=== PATIENT | female | born 1970 | race Native Hawaiian/Other Pacific Islander ===

== ENCOUNTER 2020-10-25 15:45 | Emergency (ER) | payer MEDICARE, MEDICAID ==
[~2020-10-25] VITALS: Ht 152 cm; Wt 129.0 kg
[2020-10-25] MEDS ORDERED: ACETAMINOPHEN 500 MG TAB (TYLENOL) PO STA (16:40)
[2020-10-25] MEDS ORDERED: LACTATED RINGERS 1,000 ML IV ONE (16:45)
[2020-10-25 16:46] LABS: BASOPHILS # (AUTO) 0.2 10^3/uL (0.0-0.1); BASOPHILS % (AUTO) 1 % (0-10); EOSINOPHILS # (AUTO) 0.8 10^3/uL (0.0-0.3); EOSINOPHILS % (AUTO) 4 % (0-10); HEMATOCRIT 37 % (35-52); HEMOGLOBIN 11.3 g/dL (11.5-16.0); LYMPHOCYTES % (AUTO) 31 % (12-44); MEAN CORPUSCULAR HEMOGLOBIN 23 pg (25-34); MEAN CORPUSCULAR HGB CONC 30 g/dL (32-36); MEAN CORPUSCULAR VOLUME 75 fL (80-99); MEAN PLATELET VOLUME 9.2 fL (9.0-12.2); MONOCYTES # (AUTO) 2.1 10^3/uL (0.0-1.0); MONOCYTES % (AUTO) 11 % (0-12); NEUTROPHILS % (AUTO) 52 % (42-75); PLATELET COUNT 310 10^3/uL (130-400); WHITE BLOOD COUNT 19.4 10^3/uL (4.3-11.0)
[2020-10-25 16:53] LABS: BILIRUBIN,URINE NEGATIVE (NEGATIVE); CLARITY,URINE CLEAR; COLOR,URINE YELLOW; GLUCOSE, URINE (UA) 3+ (NEGATIVE); KETONES,URINE TRACE (NEGATIVE); LEUKOCYTE ESTERASE ,URINE NEGATIVE (NEGATIVE); NITRITE,URINE NEGATIVE (NEGATIVE); PH,URINE 5.5 (5-9); PROTEIN,URINE NEGATIVE (NEGATIVE)
[2020-10-25 16:57] LABS: ALBUMIN 4.1 GM/DL (3.2-4.5); CHLORIDE 103 MMOL/L (98-107); POTASSIUM 3.3 MMOL/L (3.6-5.0); SODIUM 137 MMOL/L (135-145)
[2020-10-25 16:58] LABS: CALCIUM 9.5 MG/DL (8.5-10.1)
[2020-10-25 17:00] LABS: BACTERIA,URINE FEW /HPF; GLUCOSE 183 MG/DL (70-105); SQUAMOUS EPITHELIAL CELL,UR 25-50 /HPF; TOTAL PROTEIN 8.2 GM/DL (6.4-8.2); YEAST,URINE MODERATE /HPF
[2020-10-25] MEDS ORDERED: NS IV 1000 ML 1,000 ML IV STA ×2 (17:00→18:05)
[2020-10-25 17:01] LABS: BILIRUBIN,TOTAL 0.2 MG/DL (0.1-1.0); CARBON DIOXIDE 19 MMOL/L (21-32)
--- NOTE | 2020-10-25 17:01 | ED General ---
General Stated Complaint: LOWER PELVIC PAIN/SOA/COUGH/COVID EXPOSURE Source of Information: Patient Exam Limitations: No Limitations (ALYSE HARDY MD) History of Present Illness Date Seen by Provider: Oct 25, 2020 Time Seen by Provider: 16:10 Initial Comments Here with report of low abdominal pain on the left as well as cough and mild melissa rtness of air. Also has mild fever. Is concerned that she has urinary tract infection which she often gets secondary to her diabetes. Also had Covid exposure with multiple family members that she has been around over the last week that are now turning up positive for Covid. She is worried about Covid infection. Mild congestion with sinus pressure without throat pain. Taking i buprofen which helps some. Timing/Duration: 5-6 Days, Getting Worse Severity: Moderate Associated Systoms: Cough, Fever/Chills; No Nausea/Vomiting; Shortness of Air; No Weakness (ALYSE HARDY MD) Allergies and Home Medications Allergies Coded Allergies: No Known Drug Allergies (Unverified , 10/25/20) Patient Home Medication List Home Medication List Reviewed: Yes (ALYSE HARDY MD) Review of Systems Review of Systems Constitutional: see HPI, fever EENTM: see HPI Respiratory: see HPI Cardiovascular: No chest pain, No edema Gastrointestinal: abdominal pain (LLQ); No nausea, No vomiting Genitourinary: dysuria, frequency : No Musculoskeletal: no symptoms reported Skin: no symptoms reported (ALYSE HARDY MD) All Other Systems Reviewed Negative Unless Noted: Yes (ALYSE HARDY MD) Past Ibbvdxt-Mykcts-Tlrlau Hx Past Med/Social Hx: Reviewed Nursing Past Med/Soc Hx (ALYSE HARDY MD) Patient Social History Alcohol Use: Denies Use Smoking Status: Never a Smoker (ALYSE HARDY MD) Past Medical History Surgeries: Yes Tubal Ligation Hypertension Endocrine: Yes Diabetes, Non-Insulin dep (ALYSE HARDY MD) Family Medical History Reviewed Nursing Family Hx (ALYSE HARDY MD) No Pertinent Family Hx (ALYSE HARDY MD) Physical Exam Vital Signs Vital Signs - First Documented 10/25/20 16:10 Temp 37.3 Pulse 130 Resp 22 B/P (MAP) 141/107 (118) Pulse Ox 95 (AVINASH LAW APRN) Vital Signs Capillary Refill : (ALYSE HARDY MD) Height, Weight, BMI Height: '" Weight: lbs. oz. kg; BMI Method: General Appearance: No Apparent Distress, WD/WN, Obese HEENT: PERRL/EOMI, Pharynx Normal Neck: Non Tender, Supple Respiratory: Lungs Clear, Normal Breath Sounds Cardiovascular: No Murmur, Tachycardia Gastrointestinal: Soft; No Guarding; Tenderness (Left lower quadrant/suprapubic mild tenderness to palpation) Back: Normal Inspection, No CVA Tenderness, No Vertebral Tenderness Extremity: Normal Range of Motion, Non Tender Neurologic/Psychiatric: Alert, Oriented x3 Skin: Normal Color, Warm/Dry (ALYSE HARDY MD) Progress/Results/Core Measures Suspected Sepsis SIRS Temperature: Pulse: Respiratory Rate: Laboratory Tests 10/25/20 16:35: White Blood Count 19.4H Blood Pressure / Mean: Laboratory Tests 10/25/20 16:35: Creatinine 0.80, Platelet Count 310, Total Bilirubin 0.2 (ALYSE HARDY MD) Results/Orders Lab Results Laboratory Tests Test 10/25/20 16:30 10/25/20 16:35 Range/Units Coronavirus 2019 (TALIA) Negative Negative White Blood Count 19.4 H 4.3-11.0 10^3/uL Red Blood Count 4.95 3.80-5.11 10^6/uL Hemoglobin 11.3 L 11.5-16.0 g/dL Hematocrit 37 35-52 % Mean Corpuscular Volume 75 L 80-99 fL Mean Corpuscular Hemoglobin 23 L 25-34 pg Mean Corpuscular Hemoglobin Concent 30 L 32-36 g/dL Red Cell Distribution Width 18.3 H 10.0-14.5 % Platelet Count 310 130-400 10^3/uL Mean Platelet Volume 9.2 9.0-12.2 fL Immature Granulocyte % (Auto) 1 % Neutrophils (%) (Auto) 52 42-75 % Lymphocytes (%) (Auto) 31 12-44 % Monocytes (%) (Auto) 11 0-12 % Eosinophils (%) (Auto) 4 0-10 % Basophils (%) (Auto) 1 0-10 % Neutrophils # (Auto) 10.0 H 1.8-7.8 10^3/uL Lymphocytes # (Auto) 6.0 H 1.0-4.0 10^3/uL Monocytes # (Auto) 2.1 H 0.0-1.0 10^3/uL Eosinophils # (Auto) 0.8 H 0.0-0.3 10^3/uL Basophils # (Auto) 0.2 H 0.0-0.1 10^3/uL Immature Granulocyte # (Auto) 0.2 H 0.0-0.1 10^3/uL Neutrophils % (Manual) 53 % Lymphocytes % (Manual) 31 % Monocytes % (Manual) 14 % Eosinophils % (Manual) 2 % Nucleated Red Blood Cells 1 Hypochromasia MODERATE Target Cells SLIGHT Miller Cells SLIGHT Acanthocytes SLIGHT Urine Color YELLOW Urine Clarity CLEAR Urine pH 5.5 5-9 Urine Specific Hoffmeister 1.020 1.016-1.022 Urine Protein NEGATIVE NEGATIVE Urine Glucose (UA) 3+ H NEGATIVE Urine Ketones TRACE H NEGATIVE Urine Nitrite NEGATIVE NEGATIVE Urine Bilirubin NEGATIVE NEGATIVE Urine Urobilinogen 0.2 < = 1.0 MG/DL Urine Leukocyte Esterase NEGATIVE NEGATIVE Urine RBC (Auto) NEGATIVE NEGATIVE Urine RBC NONE /HPF Urine WBC 5-10 H /HPF Urine Squamous Epithelial Cells 25-50 H /HPF Urine Crystals NONE /LPF Urine Bacteria FEW H /HPF Urine Casts NONE /LPF Urine Mucus NEGATIVE /LPF Urine Yeast MODERATE H /HPF Urine Culture Indicated YES Sodium Level 137 135-145 MMOL/L Potassium Level 3.3 L 3.6-5.0 MMOL/L Chloride Level 103 98-107 MMOL/L Carbon Dioxide Level 19 L 21-32 MMOL/L Anion Gap 15 H 5-14 MMOL/L Blood Urea Nitrogen 18 7-18 MG/DL Creatinine 0.80 0.60-1.30 MG/DL Estimat Glomerular Filtration Rate > 60 BUN/Creatinine Ratio 23 Glucose Level 183 H 70-105 MG/DL Calcium Level 9.5 8.5-10.1 MG/DL Corrected Calcium 9.4 8.5-10.1 MG/DL Total Bilirubin 0.2 0.1-1.0 MG/DL Aspartate Amino Transf (AST/SGOT) 28 5-34 U/L Alanine Aminotransferase (ALT/SGPT) 52 0-55 U/L Alkaline Phosphatase 45 40-136 U/L C-Reactive Protein High Sensitivity 0.14 0.00-0.50 MG/DL Total Protein 8.2 6.4-8.2 GM/DL Albumin 4.1 3.2-4.5 GM/DL (AVINASH LAW APRN) Micro Results Microbiology 10/25/20 Influenza Types A,B Antigen (TANISHA) - Final, Complete (AVINASH LAW APRN) My Orders Orders - AVINASH LAW APRN Fluconazole Tablet (Ed Only) (Diflucan T (10/25/20 17:45) Lactated Ringers (Lr 1000 Ml Iv Solution (10/25/20 18:00) (AVINASH LAW APRN) Medications Given in ED Current Medications Medications Dose Ordered Sig/Rika Route Start Time Stop Time Status Last Admin Dose Admin Fluconazole 150 mg ONCE ONCE PO 10/25/20 17:45 10/25/20 17:46 DC 10/25/20 18:59 150 MG Iohexol 100 ml ONCE ONCE IV 10/25/20 17:45 10/25/20 17:46 DC 10/25/20 18:33 100 ML Sodium Chloride 100 ml ONCE ONCE IV 10/25/20 17:45 10/25/20 17:46 DC 10/25/20 18:33 80 ML (AVINASH LAW APRN) Vital Signs/I&O 10/25/20 16:10 Temp 37.3 Pulse 130 Resp 22 B/P (MAP) 141/107 (118) Pulse Ox 95 (AVINASH LAW APRN) Vital Signs/I&O Capillary Refill : (ALYSE HARDY MD) Progress Note : Progress Note Seen and evaluated. IV, labs, UA, Covid rapid test and influenza rapid test ordered. NS 1 L bolus and Tylenol 1 g p.o. ordered. Monitor patient. 1734: CT abdomen pelvis ordered is Covid and influenza screen negative. UA is nonconcerning except for yeast infection. White count is quite elevated at greater than 19,000. This was discussed with the patient who agrees. Monitor patient. (ALYSE HARDY MD) Departure Impression Primary Impression: Pelvic pain Additional Impressions: Person under investigation for COVID-19 Yeast infection of the vagina Disposition: HOME, SELF-CARE Condition: Stable Departure-Patient Inst. Decision time for Depature: 19:17 (AVINASH LAW APRN) Patient Instructions: Vaginal Yeast Infection (DC) Add. Discharge Instructions: 1. Return to ER for any concerns 2. Follow-up with your doctor next week. Scripts Fluconazole (Diflucan) 150 Mg Tablet 150 MG PO DAILY, #2 TAB Prov: AVINASH LAW APRN 10/25/20 ALYSE HARDY MD Oct 25, 2020 17:01 AVINASH LAW APRN Oct 25, 2020 19:19
[2020-10-25 17:03] LABS: ALKALINE PHOSPHATASE 45 U/L (40-136); GFR ESTIMATED > 60
[2020-10-25 17:04] LABS: BUN/CREATININE RATIO 23
[2020-10-25 17:06] LABS: ALANINE AMINOTRANSFERASE 52 U/L (0-55)
[2020-10-25] MEDS ORDERED: NS IV 1000 ML 1,000 ML IV SCH (17:15)
[2020-10-25 17:30] LABS: ACANTHOCYTES SLIGHT; BURR CELLS SLIGHT; EOSINOPHILS % (MANUAL) 2 %; HYPOCHROMASIA MODERATE; LYMPHOCYTES % (MANUAL) 31 %; MONOCYTES % (MANUAL) 14 %; NEUTROPHILS % (MANUAL) 53 %; NUCLEATED RED BLOOD CELLS 1; TARGET CELLS SLIGHT
[2020-10-25] MEDS ORDERED: HOLD METFORMIN - RECEIVED CONTRAST 20 ML VIAL IV SCH (17:45)
[2020-10-25] MEDS ORDERED: IOHEXOL 350 MG/ML 100 ML (OMNIPAQUE 350) VIAL IV ONE (17:45)
[2020-10-25] MEDS ORDERED: NS 100 ML (IVPB) BAG IV ONE (17:45)
[2020-10-25] MEDS ORDERED: FLUCONAZOLE 150 MG TABLET (ED ONLY) PO ONE (17:45)
[2020-10-25] MEDS ORDERED: LACTATED RINGERS 1,000 ML IV SCH (18:00)
--- NOTE | 2020-10-25 19:01 | Diagnostic Imaging Report ---
PROCEDURE: CT abdomen and pelvis with contrast. TECHNIQUE: Multiple contiguous axial images were obtained through the abdomen and pelvis after administration of intravenous contrast. Auto Exposure Controls were utilized during the CT exam to meet ALARA standards for radiation dose reduction. All CT scans use one or more of the following dose optimizing techniques: automated exposure control, MA and/or KvP adjustment based on patient size and exam type or iterative reconstruction. INDICATION: Lower abdominal pain. Recent exposure to COVID. Body aches. CORRELATION STUDY: None. FINDINGS: LOWER THORAX: Clear. LIVER: Mild steatosis. GALLBLADDER: Present and unremarkable. No bile duct dilatation. SPLEEN: Absent. PANCREAS: Unremarkable. ADRENAL GLANDS: Unremarkable. KIDNEYS: 19 mm exophytic mass inferior pole right kidney. Incompletely characterized. Kidneys and collecting system otherwise unremarkable. ABDOMINAL AORTA: Unremarkable, nonaneurysmal. GASTROINTESTINAL TRACT: Stomach is distended with retained gastric contents. No small bowel obstruction. Moderate stool retention throughout the colon. Negative for appendicitis. No abnormal ascites or free air. URINARY BLADDER: Unremarkable. REPRODUCTIVE: Unremarkable. OSSEOUS STRUCTURES: No acute abnormality. OTHER: None. IMPRESSION: 1. Negative for acute abnormality of the abdomen or pelvis. 2. Exophytic mass inferior pole right kidney. May very well reflect a cyst but is incompletely characterized on this study. Questionable peripheral enhancement. Short-term follow-up assessment is recommended, perhaps to include renal ultrasound. Dictated by: Dictated on workstation # [id number]
[2020-10-25] MEDS ORDERED: FLUC150T PO (19:19)
[2020-10-25 19:48] VITALS: BP 137/90
== END 2020-10-25 19:58 | disposition home or self-care (01) ==
LOC: ER 15:48
DX: B37.3 Candidiasis of vulva and vagina (principal); R05 Cough; R06.02 Shortness of breath; R50.9 Fever, unspecified; J34.89 Other specified disorders of nose and nasal sinuses; I10 Essential (primary) hypertension; E11.9 Type 2 diabetes mellitus without complications; E66.9 Obesity, unspecified; Z20.822 Contact with and (suspected) exposure to COVID-19
CPT/HCPCS: 74177; 80053; 81000; 85007; 85027; 86141; 87088; 87804; 99284; U0002; 36415; 87635

== ENCOUNTER 2021-08-22 20:52 | Observation (INO) | payer MEDICAID, MEDICARE ==
[~2021-08-22] VITALS: Ht 157 cm; Wt 111.7 kg
[~2021-08-22 20:52] MED LIST: FLUC150T PO
[2021-08-22] MEDS ORDERED: morphine INJ 10 MG/ML 1ML (SYR OR VIAL) IV STA (21:09)
[2021-08-22 21:15] LABS: BASOPHILS # (AUTO) 0.3 10^3/uL (0.0-0.1); BASOPHILS % (AUTO) 2 % (0-10); EOSINOPHILS # (AUTO) 0.8 10^3/uL (0.0-0.3); EOSINOPHILS % (AUTO) 5 % (0-10); HEMATOCRIT 39 % (35-52); HEMOGLOBIN 11.7 g/dL (11.5-16.0); LYMPHOCYTES # (AUTO) 4.8 10^3/uL (1.0-4.0); LYMPHOCYTES % (AUTO) 32 % (12-44); MEAN CORPUSCULAR HEMOGLOBIN 22 pg (25-34); MEAN CORPUSCULAR HGB CONC 30 g/dL (32-36); MEAN CORPUSCULAR VOLUME 73 fL (80-99); MEAN PLATELET VOLUME 9.6 fL (9.0-12.2); MONOCYTES # (AUTO) 1.9 10^3/uL (0.0-1.0); MONOCYTES % (AUTO) 13 % (0-12); NEUTROPHILS # (AUTO) 6.9 10^3/uL (1.8-7.8); NEUTROPHILS % (AUTO) 46 % (42-75); PLATELET COUNT 140 10^3/uL (130-400); WHITE BLOOD COUNT 14.9 10^3/uL (4.3-11.0)
[2021-08-22] MEDS ORDERED: ASPIRIN 81 MG CHEW (CHILDREN'S ASA) PO ONE (21:15)
[2021-08-22 21:18] LABS: ALBUMIN 3.8 GM/DL (3.2-4.5); POTASSIUM 3.1 MMOL/L (3.6-5.0)
--- NOTE | 2021-08-22 21:19 | ED Cardiac General ---
History of Present Illness General Chief Complaint: Chest Pain Stated Complaint: CHEST PAIN Source: patient Exam Limitations: no limitations History of Present Illness Date Seen by Provider: Aug 22, 2021 Time Seen by Provider: 21:17 Initial Comments Patient is a 51-year-old female who presents to ED with chest pain. Started with numbness and tingling along the anterior part of her chest to her extremities 4 hours ago. Started developing pain to the left side of the chest underneath her left breast and axilla 1 hour ago. Described as a squeezing sensation and pressure. Mild shortness of breath without nausea, vomiting, diarrhea, abdominal pain, headache, dizziness, unilateral muscle weakness or se nsory changes. Denies history of coronary artery disease. History of asthma, hypertension, diabetes, dyslipidemia, family cardiac history. No history of previous cardiac event. Patient is scheduled to follow-up with neurologist secondary to focal seizures. She states she has intermittent episodes where she jerks and throws objects unwillingly. Allergies and Home Medications Allergies Coded Allergies: No Known Drug Allergies (Unverified , 10/25/20) Patient Home Medication List Home Medication List Reviewed: Yes Fluconazole (Diflucan) 150 Mg Tablet, 150 MG PO DAILY Prescribed by: AVINASH LAW on 10/25/201918 Review of Systems Review of Systems Constitutional: No chills, No diaphoresis, No fever EENTM: No Blurred Vision, No Double Vision, No Eye Pain Respiratory: Denies Cough, Denies Shortness of Air, Denies SOA With Exertion Cardiovascular: Chest Pain; Denies Edema Gastrointestinal: Denies Abdomen Distended, Denies Abdominal Pain Genitourinary: Denies Burning, Denies Discharge Musculoskeletal: No see HPI, No back pain, No gout, No joint pain Skin: No see HPI, No change in color, No change in hair/nails Psychiatric/Neurological: Denies Anxiety, Denies Depressed Endocrine: Denies See HPI Hematologic/Lymphatic: Denies See HPI Past Lokaayl-Arqnsz-Efobew Hx Seasonal Allergies Seasonal Allergies: Yes Past Medical History Surgeries: Yes Tubal Ligation Respiratory: Yes Asthma, Sleep Apnea Cardiac: Yes Hypertension Neurological: No Genitourinary: Yes UTI-Chronic Gastrointestinal: Yes (CELIAC DISEASE) Endocrine: Yes Diabetes, Non-Insulin dep HEENT: No Cancer: No Psychosocial: No Integumentary: No Family Medical History No Pertinent Family Hx Physical Exam Vital Signs Vital Signs - First Documented 08/22/21 20:55 Temp 36.4 Pulse 93 Resp 24 B/P (MAP) 158/87 (110) Pulse Ox 97 O2 Delivery Room Air Capillary Refill : Height, Weight, BMI Height: '" Weight: lbs. oz. kg; 55.00 BMI Method: General Appearance: No Apparent Distress, WD/WN HEENT: PERRL/EOMI, TMs Normal, Normal ENT Inspection, Pharynx Normal Neck: Full Range of Motion, Normal Inspection, Non Tender, Supple Respiratory: Chest Non Tender, Lungs Clear, Normal Breath Sounds Cardiovascular: Regular Rate, Rhythm, No Edema, No Gallop, No JVD Gastrointestinal: Normal Bowel Sounds, No Organomegaly, No Pulsatile Mass, Non Tender Extremity: Normal Capillary Refill, Normal Inspection, Normal Range of Motion, Non Tender Skin: Normal Color, Warm/Dry Progress/Results/Core Measures Results/Orders Lab Results Laboratory Tests Test 08/22/21 21:05 Range/Units White Blood Count 14.9 H 4.3-11.0 10^3/uL Red Blood Count 5.29 H 3.80-5.11 10^6/uL Hemoglobin 11.7 11.5-16.0 g/dL Hematocrit 39 35-52 % Mean Corpuscular Volume 73 L 80-99 fL Mean Corpuscular Hemoglobin 22 L 25-34 pg Mean Corpuscular Hemoglobin Concent 30 L 32-36 g/dL Red Cell Distribution Width 18.6 H 10.0-14.5 % Platelet Count 140 130-400 10^3/uL Mean Platelet Volume 9.6 9.0-12.2 fL Immature Granulocyte % (Auto) 2 % Neutrophils (%) (Auto) 46 42-75 % Lymphocytes (%) (Auto) 32 12-44 % Monocytes (%) (Auto) 13 H 0-12 % Eosinophils (%) (Auto) 5 0-10 % Basophils (%) (Auto) 2 0-10 % Neutrophils # (Auto) 6.9 1.8-7.8 10^3/uL Lymphocytes # (Auto) 4.8 H 1.0-4.0 10^3/uL Monocytes # (Auto) 1.9 H 0.0-1.0 10^3/uL Eosinophils # (Auto) 0.8 H 0.0-0.3 10^3/uL Basophils # (Auto) 0.3 H 0.0-0.1 10^3/uL Immature Granulocyte # (Auto) 0.3 H 0.0-0.1 10^3/uL Neutrophils % (Manual) 55 % Lymphocytes % (Manual) 28 % Monocytes % (Manual) 10 % Eosinophils % (Manual) 5 % Basophils % (Manual) 2 % Blood Morphology Comment NORMAL Prothrombin Time 13.1 12.2-14.7 SEC INR Comment 1.0 0.8-1.4 Activated Partial Thromboplast Time 25 24-35 SEC Sodium Level 136 135-145 MMOL/L Potassium Level 3.1 L 3.6-5.0 MMOL/L Chloride Level 102 98-107 MMOL/L Carbon Dioxide Level 21 21-32 MMOL/L Anion Gap 13 5-14 MMOL/L Blood Urea Nitrogen 17 7-18 MG/DL Creatinine 0.93 0.60-1.30 MG/DL Estimat Glomerular Filtration Rate 64 BUN/Creatinine Ratio 18 Glucose Level 215 H 70-105 MG/DL Calcium Level 8.8 8.5-10.1 MG/DL Corrected Calcium 9.0 8.5-10.1 MG/DL Magnesium Level 1.9 1.6-2.4 MG/DL Total Bilirubin 0.3 0.1-1.0 MG/DL Aspartate Amino Transf (AST/SGOT) 54 H 5-34 U/L Alanine Aminotransferase (ALT/SGPT) 90 H 0-55 U/L Alkaline Phosphatase 70 40-136 U/L Troponin I < 0.028 <0.028 NG/ML Total Protein 8.0 6.4-8.2 GM/DL Albumin 3.8 3.2-4.5 GM/DL My Orders Orders - JUANCHO METZ PA Cbc With Automated Diff (08/22/21 21:09) Magnesium (08/22/21 21:09) Chest 1 View, Ap/Pa Only (08/22/21 21:09) Ekg Tracing (08/22/21 21:) Comprehensive Metabolic Panel (08/22/21 21:09) Protime With Inr (08/22/21 21:) Partial Thromboplastin Time (08/22/21 21:) Monitor-Rhythm Ecg Trace Only (08/22/21 21:09) Ed Iv/Invasive Line Start (08/22/21 21:09) Troponin I (08/22/21 21:09) Aspirin Chewable Tablet (Baby Aspirin Ch (08/22/21 21:15) Morphine Injection (Morphine Injection (08/22/21 21:09) Manual Differential (08/22/21 21:05) Ua Culture If Indicated (08/22/21 21:40) Medications Given in ED Current Medications Medications Dose Ordered Sig/Rika Route Start Time Stop Time Status Last Admin Dose Admin Aspirin 324 mg ONCE ONCE PO 08/22/21 21:15 08/22/21 21:16 DC 08/22/21 21:16 324 MG Vital Signs/I&O 08/22/21 20:55 Temp 36.4 Pulse 93 Resp 24 B/P (MAP) 158/87 (110) Pulse Ox 97 O2 Delivery Room Air Departure Communication (Admissions) Time/Spoke to Admitting Phy: 22:10 Time/Spoke to Consulting Phy: 22:[address] Gabriel who accepts patient at this time. Consulted Dr. Pierre who recommends starting metoprolol succinate 50 mg and aspirin 81 mg daily. Patient presents ED with chest pain. Pain started 4 hours ago with numbness and tingling to her hands and jaw. This became worse with squeezing type pain to the left side of her chest with shortness of breath. Patient with cardiac risk factors. HEART Score 4. Family cardiac history. Patient vital signs were stable. No recent travels or surgeries. Denies of any specific swelling, redness or bruising. Patient was given a dose of aspirin and morphine. 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 Abnormal CBC with previous similar results in the past. Cardiac work-up unremarkable. Chest x-ray unremarkable. Urinalysis negative for infection. Recommend admission for cardiac work-up. Discussed patient with Dr. Oconnor who accepts patient. Discussed patient with Dr. Pierre who recommends metoprolol Succinate 50 mg extended release and aspirin 81 mg, as needed morphine. Patient agrees with admission at this time. Impression Primary Impression: Chest pain Disposition: ADMITTED INPATIENT Condition: Stable Admissions Decision to Admit Reason: Admit from ER (General) Decision to Admit/Date: Aug 22, 2021 Time/Decision to Admit Time: 22:11 Departure-Patient Inst. Referrals: SRINIVAS CUELLO APRN (PCP/Family) Primary Care Physician JUANCHO METZ Aug 22, 2021 21:19
[2021-08-22 21:20] LABS: CALCIUM 8.8 MG/DL (8.5-10.1); PROTHROMBIN TIME PATIENT 13.1 SEC (12.2-14.7)
[2021-08-22 21:23] LABS: BILIRUBIN,TOTAL 0.3 MG/DL (0.1-1.0)
[2021-08-22 21:24] LABS: CREATININE SERUM 0.93 MG/DL (0.60-1.30)
[2021-08-22 21:27] LABS: MAGNESIUM 1.9 MG/DL (1.6-2.4)
--- NOTE | 2021-08-22 21:43 | Diagnostic Imaging Report ---
EXAM: CHEST 1 VIEW, AP/PA ONLY INDICATION: Chest pain. COMPARISON: None. FINDINGS: Normal heart size and central pulmonary vascularity. No focal pulmonary opacity. No pleural effusion or pneumothorax. No acute osseous findings. IMPRESSION: No acute cardiopulmonary findings. Dictated by: Dictated on workstation # [id number]
[2021-08-22 21:52] LABS: LYMPHOCYTES % (MANUAL) 28 %; MONOCYTES % (MANUAL) 10 %; NEUTROPHILS % (MANUAL) 55 %
[2021-08-22 21:53] LABS: BASOPHILS % (MANUAL) 2 %; EOSINOPHILS % (MANUAL) 5 %; RBC MORPH NORMAL
[2021-08-22 22:21] LABS: BILIRUBIN,URINE NEGATIVE (NEGATIVE); CLARITY,URINE CLEAR; COLOR,URINE YELLOW; GLUCOSE, URINE (UA) 3+ (NEGATIVE); KETONES,URINE NEGATIVE (NEGATIVE); LEUKOCYTE ESTERASE ,URINE NEGATIVE (NEGATIVE); NITRITE,URINE NEGATIVE (NEGATIVE); PROTEIN,URINE NEGATIVE (NEGATIVE)
[2021-08-22] MEDS ORDERED: meTOproloL SUCCINATE 50 MG (TOPROL XL) TAB PO STA (22:27)
[2021-08-22 22:42] LABS: BACTERIA,URINE NEGATIVE /HPF; SQUAMOUS EPITHELIAL CELL,UR 0-2 /HPF
[2021-08-22 22:43] LABS: YEAST,URINE FEW /HPF
[2021-08-22 23:11] VITALS: BP 148/86
[2021-08-22 23:28] VITALS: BP 142/84
[2021-08-22 23:30] VITALS: BP 138/89
[2021-08-22 23:45] VITALS: BP 138/82
[2021-08-22] MEDS ORDERED: ONDANSETRON 4 MG/2 ML (SDV) Z0FRAN IVP PRN (23:45)
[2021-08-22] MEDS ORDERED: morphine INJ 4 MG/ML 1 ML (VIAL/SYRINGE) IVP PRN (23:45)
[2021-08-22] MEDS ORDERED: NITROGLYCERIN 0.4 MG SL TABS BTL 25'S SL PRN (23:45)
[2021-08-22] MEDS ORDERED: morphine INJ 4 MG/ML 1 ML (VIAL/SYRINGE) IV PRN (23:45)
[2021-08-23] VITALS (11 sets, daily range): BP systolic 116–155; BP diastolic 68–87
[2021-08-23] MEDS ORDERED: FLU QUADRIvalent (3YOA+) 60 mcg/0.5 ml 2021-22(AFLURIA) IM ONE (06:45)
[2021-08-23 07:18] LABS: BASOPHILS # (AUTO) 0.2 10^3/uL (0.0-0.1); BASOPHILS % (AUTO) 2 % (0-10); EOSINOPHILS % (AUTO) 7 % (0-10); HEMATOCRIT 39 % (35-52); HEMOGLOBIN 11.9 g/dL (11.5-16.0); LYMPHOCYTES # (AUTO) 4.6 10^3/uL (1.0-4.0); LYMPHOCYTES % (AUTO) 32 % (12-44); MEAN CORPUSCULAR HEMOGLOBIN 22 pg (25-34); MEAN CORPUSCULAR HGB CONC 30 g/dL (32-36); MEAN CORPUSCULAR VOLUME 74 fL (80-99); MEAN PLATELET VOLUME 10.6 fL (9.0-12.2); MONOCYTES % (AUTO) 14 % (0-12); NEUTROPHILS # (AUTO) 6.5 10^3/uL (1.8-7.8); NEUTROPHILS % (AUTO) 45 % (42-75); PLATELET COUNT 146 10^3/uL (130-400); WHITE BLOOD COUNT 14.6 10^3/uL (4.3-11.0)
[2021-08-23 07:28] LABS: ALBUMIN 3.8 GM/DL (3.2-4.5); BILIRUBIN,TOTAL 0.3 MG/DL (0.1-1.0); CALCIUM 9.1 MG/DL (8.5-10.1); CREATININE SERUM 0.82 MG/DL (0.60-1.30); TOTAL PROTEIN 8.3 GM/DL (6.4-8.2)
[2021-08-23] MEDS ORDERED: meTOproloL SUCCINATE 50 MG (TOPROL XL) TAB PO SCH (09:00)
[2021-08-23] MEDS ORDERED: ASPIRIN E.C. 81 MG (ECOTRIN) TAB PO SCH (09:00)
--- NOTE | 2021-08-23 09:32 | Consultation-Cardiology ---
HPI-Cardiology Cardiology Consultation: Date of Consultation 08/23/21 Time Seen by a Provider: 09:00 Date of Admission 08-22-21 Attending Physician Erica Gabriel DO Admitting Physician Nicol,Local Physician Consulting Physician Matias Pierre MD HPI: Chief Complaint: Chest pain Ms. Goodwin is a 51 yr old female admitted to [facility] from the ED with c/o chest pain. She reports she was lying down last night when she developed left sided chest pain in the the breast region. She reports it as a sharp stabbing pain that radiated around to under her arm and made her hands feel numb. She states she changed positions to try and relieve the discomfort. Movement did not make the pain any worse. She reports she felt some diaphoresis and nausea with the discomfort. She reports is persisted constantly for several hours. She reports she has a pulse ox at home and noted her HR to vary from 80's to 140's. She reports she did feel as though she was having palpitations at that time. She reports since being admitted she has had "tinges" of sharp, stabbing pains to her left breast which are localized lasting a few seconds. No c/o SOB. She states she uses CPAP at night and has been compliant. She denies any h/v/d. No c/o LE swelling. Review of Systems-Cardiology Review of Systems Constitutional: No chills, No fever; lightheadedness Eyes: No vision change Ears/Nose/Throat: No epistaxis, No recent hearing loss Respiratory: As described under HPI Cardiovascular: As described under HPI Gastrointestinal: As described under HPI Genitourinary: No dysuria, No hematuria Musculoskeletal: As describe under HPI Skin: No rash on exposed areas, No ulcerations on exposed areas Psychiatric/Neurological: anxiety, depression; No seizure (re), No focal weakn ess, No syncope Hematologic: No bleeding abnormalities PWP-Kakcyu-Xmloms Hx Patient Social History Smoking Status: Never a Smoker Have you traveled recently?: No Alcohol Use?: No Pt feels they are or have been: No Past Medical History PMH As described under Assessment. Family Medical History Family Medical History: She reports he mother has cardiac issues, but is unsure of exactly what the issues are. Allergies and Home Medications Allergies Coded Allergies: No Known Drug Allergies (Unverified , 10/25/20) Patient Home Medication List Fluconazole (Diflucan) 150 Mg Tablet, 150 MG PO DAILY Prescribed by: AVINASH LAW on 10/25/201918 Physical Exam-Cardiology Physical Exam Vital Signs/I&O 08/22/21 08/22/21 08/22/21 08/22/21 23:05 23:07 23:09 23:11 Temp 36.1 Pulse 90 92 96 Resp 18 16 B/P (MAP) 152/86 148/86 (106) Pulse Ox 98 98 98 O2 Delivery Room Air Room Air Room Air 08/22/21 08/22/21 08/22/21 08/23/21 23:28 23:30 23:45 00:00 Pulse 98 92 89 92 Resp 14 21 22 B/P (MAP) 142/84 (100) 138/89 (106) 138/82 (96) 155/87 (108) Pulse Ox 96 95 96 96 O2 Delivery Room Air Room Air Room Air Room Air 08/23/21 08/23/21 08/23/21 08/23/21 00:15 00:30 00:45 01:00 Pulse 87 88 89 90 Resp 19 25 19 21 B/P (MAP) 135/84 (93) 137/75 (95) 131/77 (94) 127/76 (91) Pulse Ox 95 96 96 96 O2 Delivery Room Air Room Air Room Air Room Air 08/23/21 08/23/21 08/23/21 08/23/21 01:00 02:00 03:00 03:57 Pulse 86 87 86 Resp 18 23 B/P (MAP) 141/85 (102) 137/86 (105) Pulse Ox 97 97 96 O2 Delivery Room Air Room Air Room Air 08/23/21 08/23/21 08/23/21 04:00 05:00 07:43 Temp 35.7 Pulse 87 82 82 Resp 17 20 21 B/P (MAP) 116/68 (84) 137/83 (101) 147/83 (104) Pulse Ox 98 93 97 O2 Delivery Room Air Room Air Room Air Capillary Refill : Less Than 3 Seconds Constitutional: AAO x 3, well-developed, well-nourished HEENT: PERRL, hearing is well preserved, oral hygience is good Neck: No carotid bruit; carotid pulses are 2 + bilaterally Respiratory: No accessory muscle use, No respiratory distress; chest expansion is symmetric, chest is bilaterally symmetric, lungs clear to auscultation Cardiovascular: regular rate-rhythm; No JVD; S1 and S2 Gastrointestinal: No tender; soft, round, audible bowel sounds Extremities: no lower extremity edema bilateral Neurologic/Psychiatric: grossly intact (moves all extremities) Skin: No rash on exposed areas, No ulcerations on exposed areas Data Review Labs Laboratory Tests 08/22/21 21:05: White Blood Count 14.9H, Red Blood Count 5.29H, Hemoglobin 11.7, Hematocrit 39, Mean Corpuscular Volume 73L, Mean Corpuscular Hemoglobin 22L, Mean Corpuscular Hemoglobin Concent 30L, Red Cell Distribution Width 18.6H, Platelet Count 140, Mean Platelet Volume 9.6, Immature Granulocyte % (Auto) 2, Neutrophils (%) (Auto) 46, Lymphocytes (%) (Auto) 32, Monocytes (%) (Auto) 13H, Eosinophils (%) (Auto) 5, Basophils (%) (Auto) 2, Neutrophils # (Auto) 6.9, Lymphocytes # (Auto) 4.8H, Monocytes # (Auto) 1.9H, Eosinophils # (Auto) 0.8H, Basophils # (Auto) 0.3H, Immature Granulocyte # (Auto) 0.3H, Neutrophils % (Manual) 55, Lymphocytes % (Manual) 28, Monocytes % (Manual) 10, Eosinophils % (Manual) 5, Basophils % (Manual) 2, Blood Morphology Comment NORMAL, Prothrombin Time 13.1, INR Comment 1.0, Activated Partial Thromboplast Time 25, Sodium Level 136, Potassium Level 3.1L, Chloride Level 102, Carbon Dioxide Level 21, Anion Gap 13, Blood Urea Nitrogen 17, Creatinine 0.93, Estimat Glomerular Filtration Rate 64, BUN/Creatinine Ratio 18, Glucose Level 215H, Calcium Level 8.8, Corrected Calcium 9.0, Magnesium Level 1.9, Total Bilirubin 0.3, Aspartate Amino Transf (AST/SGOT) 54H, Alanine Aminotransferase (ALT/SGPT) 90H, Alkaline Phosphatase 70, Troponin I < 0.028, Total Protein 8.0, Albumin 3.8 08/22/21 22:12: Urine Color YELLOW, Urine Clarity CLEAR, Urine pH 7.0, Urine Specific [place] 1.020, Urine Protein NEGATIVE, Urine Glucose (UA) 3+H, Urine Ketones NEGATIVE, Urine Nitrite NEGATIVE, Urine Bilirubin NEGATIVE, Urine Urobilinogen 0.2, Urine Leukocyte Esterase NEGATIVE, Urine RBC (Auto) NEGATIVE, Urine RBC NONE, Urine WBC NONE, Urine Squamous Epithelial Cells 0-2, Urine Crystals NONE, Urine Bacteria NEGATIVE, Urine Casts NONE, Urine Mucus NEGATIVE, Urine Yeast FEWH, Urine Culture Indicated YES 08/23/21 06:00: White Blood Count 14.6H, Red Blood Count 5.33H, Hemoglobin 11.9, Hematocrit 39, Mean Corpuscular Volume 74L, Mean Corpuscular Hemoglobin 22L, Mean Corpuscular Hemoglobin Concent 30L, Red Cell Distribution Width 18.6H, Platelet Count 146, Mean Platelet Volume 10.6, Immature Granulocyte % (Auto) 2, Neutrophils (%) (Auto) 45, Lymphocytes (%) (Auto) 32, Monocytes (%) (Auto) 14H, Eosinophils (%) (Auto) 7, Basophils (%) (Auto) 2, Neutrophils # (Auto) 6.5, Lymphocytes # (Auto) 4.6H, Monocytes # (Auto) 2.0H, Eosinophils # (Auto) 1.0H, Basophils # (Auto) 0.2H, Immature Granulocyte # (Auto) 0.3H, Sodium Level 136, Potassium Level 3.0L , Chloride Level 102, Carbon Dioxide Level 21, Anion Gap 13, Blood Urea Nitrogen 17, Creatinine 0.82, Estimat Glomerular Filtration Rate 74, BUN/Creatinine Ratio 21, Glucose Level 151H, Calcium Level 9.1, Corrected Calcium 9.3, Total Bilirubin 0.3, Aspartate Amino Transf (AST/SGOT) 54H, Alanine Aminotransferase (ALT/SGPT) 87H, Alkaline Phosphatase 55, Troponin I < 0.028, Total Protein 8.3H, Albumin 3.8, Triglycerides Level 397H, Cholesterol Level 176, LDL Cholesterol Direct 78, VLDL Cholesterol 79H, HDL Cholesterol 26L 08/23/21 09:15: Radiology NAME: RAMANDEEPJanuary MED REC#: [id number] PT STATUS: REG ER : 1970 PHYSICIAN: JUANCHO METZ ADMIT DATE: 08/22/21/ER Signed Date of Exam:08/22/21 CHEST 1 VIEW, AP/PA ONLY EXAM: CHEST 1 VIEW, AP/PA ONLY INDICATION: Chest pain. COMPARISON: None. FINDINGS: Normal heart size and central pulmonary vascularity. No focal pulmonary opacity. No pleural effusion or pneumothorax. No acute osseous findings. IMPRESSION: No acute cardiopulmonary findings. 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 Fibromyalgia Reported h/o celiac dz Depression/anxiety Neuropathy GERD H/O H.pylori H/O focal seizures - awaiting neurology consult Hypothyroidism Reported h/o celiac dz Obesity - BMI 45 Discussion and Recomendations Non-specific chest pain of undetermined etiology - no evidence of ACS thus far Echocadiogram to eval structure and function Continue home medications Replace electrolytes Monitor lab Further recs will be based on her hospital course We would like to thank medical services for this consult Clinical Quality Measures AMI/AHF: ASA po Prior to arrival: DELIA Bernal [employer]INE [employer]SION TECHNICIAN Aug 23, 2021 09:32
[2021-08-23] MEDS ORDERED: KCL 20 MEQ TAB (K-DUR) PO ONE ×2 (10:00→12:00)
--- NOTE | 2021-08-23 10:59 | Short Stay Summary ---
TARYNDATMIKI FERNANDO 08/23/21 1059: History of Present Illness History of Present Illness Reason for visit/HPI CC: Chest pain Previous HPI from ED: Patient is a 51-year-old female who presents to ED with chest pain. Started with numbness and tingling along the anterior part of her chest to her extremities 4 hours ago. Started developing pain to the left side of the chest underneath her left breast and axilla 1 hour ago. Described as a squeezing sensation and pressure. Mild shortness of breath without nausea, vomiting, diarrhea, abdominal pain, headache, dizziness, unilateral muscle weakness or sensory changes. Denies history of coronary artery disease. History of asthma, hypertension, diabetes, dyslipidemia, family cardiac history. No history of previous cardiac event. Patient is scheduled to follow-up with neurologist secondary to focal seizures. She states she has intermittent episodes where she jerks and throws objects unwillingly. Today patient was resting comfortably in bed with no distress and was asking about going home. was also in room. PT state she arrived to ED yesterday due to concern regarding pain felt over her left breast which migrated to her left axilla. She received a cardiac work up and consult with cardiology which displayed no acute cardiac disfunction. She has no complaints of pain or discomfort today. She will follow-up with her PCP for further evaluation. Date of Admission Aug 22, 2021 at 22:10 Date of Discharge 08/23/2021 Time Seen by Provider: 08:16 Attending Physician Erica Burton DO Admitting Physician No,Local Physician Consult Allergies and Home Medications Allergies Coded Allergies: No Known Drug Allergies (Unverified , 10/25/20) Patient Home Medication List Discontinued Medications Fluconazole (Diflucan) 150 Mg Tablet, 150 MG PO DAILY Prescribed by: AVINASH LAW on 10/25/201918 Last Action: Discontinued Past Nufzirk-Pgqyyb-Emqxti Hx Patient Social History Marrital Status: Smoking Status: Never a Smoker Recent Hopitalizations: No Have you traveled recently?: No Alcohol Use?: No Pt feels they are or have been: No Seasonal Allergies Seasonal Allergies: Yes Surgeries Yes Abdominal (Splenectomy - secondary to ITP), Section, Tubal Ligation Respiratory Yes Asthma Cardiovascular Yes Hypertension Neurological Yes Seizure Disorder (Focal Seizures) Reproductive System CHARGE ENTRY History: Tubal Ligation Genitourinary Yes UTI-Chronic Gastrointestinal Yes (CELIAC DISEASE) Irritable Bowel (celiac dz) Endocrine History of Endocrine Disorders: Yes Endocrine Disorders: Diabetes, Non-Insulin dep HEENT History of HEENT Disorders: No Loss of Vision: Denies Hearing Impairment: Denies Cancer No Psychosocial History of Psychiatric Problem: No Integumentary History of Skin or Integumenta: No Family Medical History Significant Family History: Cancer, CAD Over 55 Years Old (Grandmother - [place]), Diabetes (Both Mom and Dad - T2DM) Review of Systems Constitutional: No chills, No diaphoresis, No dizziness, No fever, No weakness EENTM: No hearing loss, No ear pain, No blurred vision, No double vision, No eye pain, No mouth pain, No mouth swelling, No throat pain, No throat swelling Respiratory: No cough, No dyspnea on exertion, No hemoptysis, No short of breath, No wheezing Gastrointestinal: No RUQ, No LUQ, No RLQ, No LLQ, No dysphagia, No hematemesis, No heartburn Genitourinary: No decreased output, No discharge, No dysuria, No frequency Musculoskeletal: back pain; No joint pain, No muscle pain, No neck pain Skin: No change in color, No change in hair/nails, No dryness, No hx of skin cancer, No lesions Psychiatric/Neurological: Denies Anxiety, Denies Depressed, Denies Headache, Denies Numbness; Seizure ( -hx of focal seizure - is already referred to neurology) Physical Exam Vital Signs Vital Signs - First Documented 08/22/21 20:55 Temp 36.4 Pulse 93 Resp 24 B/P (MAP) 158/87 (110) Pulse Ox 97 O2 Delivery Room Air Capillary Refill : Less Than 3 Seconds Height, Weight, BMI Height: '" Weight: lbs. oz. kg; 45.31 BMI Method: General Appearance: No Apparent Distress, WD/WN, Obese Eyes: Bilateral Eye PERRL, Bilateral Eye EOMI HEENT: PERRL/EOMI, Pharynx Normal Neck: Full Range of Motion, Non Tender, Supple Respiratory: Lungs Clear, Normal Breath Sounds, No Accessory Muscle Use, No Respiratory Distress Cardiovascular: Regular Rate, Rhythm, No Edema, No Gallop, No JVD, No Murmur, Normal Peripheral Pulses Gastrointestinal: Normal Bowel Sounds, No Organomegaly, No Pulsatile Mass, Non Tender, Soft Rectal: Deferred Back: CVA Tenderness (R) Extremity: Normal Capillary Refill, Normal Range of Motion, Non Tender, No Calf Tenderness, No Pedal Edema Neurologic/Psychiatric: Alert, Oriented x3, No Motor/Sensory Deficits, Normal Mood/Affect, delinquent notice machine operator II-XII Norm as Tested Reflexes: 2+ Bicep (R), 2+ Bicep (L) Skin: Normal Color, Warm/Dry Lymphatic: No Adenopathy (cervical and axillary) Clinical Quality Measures AMI/AHF: ASA po Prior to arrival: No Short Stay Diagnosis Conclusion Labs Laboratory Tests 08/22/21 21:05: White Blood Count 14.9H, Red Blood Count 5.29H, Hemoglobin 11.7, Hematocrit 39, Mean Corpuscular Volume 73L, Mean Corpuscular Hemoglobin 22L, Mean Corpuscular Hemoglobin Concent 30L, Red Cell Distribution Width 18.6H, Platelet Count 140, Mean Platelet Volume 9.6, Immature Granulocyte % (Auto) 2, Neutrophils (%) (Auto) 46, Lymphocytes (%) (Auto) 32, Monocytes (%) (Auto) 13H, Eosinophils (%) (Auto) 5, Basophils (%) (Auto) 2, Neutrophils # (Auto) 6.9, Lymphocytes # (Auto) 4.8H, Monocytes # (Auto) 1.9H, Eosinophils # (Auto) 0.8H, Basophils # (Auto) 0.3H, Immature Granulocyte # (Auto) 0.3H, Neutrophils % (Manual) 55, Lymphocytes % (Manual) 28, Monocytes % (Manual) 10, Eosinophils % (Manual) 5, Basophils % (Manual) 2, Blood Morphology Comment NORMAL, Prothrombin Time 13.1, INR Comment 1.0, Activated Partial Thromboplast Time 25, Sodium Level 136, Potassium Level 3.1L, Chloride Level 102, Carbon Dioxide Level 21, Anion Gap 13, Blood Urea Nitrogen 17, Creatinine 0.93, Estimat Glomerular Filtration Rate 64, BUN/Creatinine Ratio 18, Glucose Level 215H, Calcium Level 8.8, Corrected Calcium 9.0, Magnesium Level 1.9, Total Bilirubin 0.3, Aspartate Amino Transf (AST/SGOT) 54H, Alanine Aminotransferase (ALT/SGPT) 90H, Alkaline Phosphatase 70, Troponin I < 0.028, Total Protein 8.0, Albumin 3.8 08/22/21 22:12: Urine Color YELLOW, Urine Clarity CLEAR, Urine pH 7.0, Urine Specific [place] 1.020, Urine Protein NEGATIVE, Urine Glucose (UA) 3+H, Urine Ketones NEGATIVE, Urine Nitrite NEGATIVE, Urine Bilirubin NEGATIVE, Urine Urobilinogen 0.2, Urine Leukocyte Esterase NEGATIVE, Urine RBC (Auto) NEGATIVE, Urine RBC NONE, Urine WBC NONE, Urine Squamous Epithelial Cells 0-2, Urine Crystals NONE, Urine Bacteria NEGATIVE, Urine Casts NONE, Urine Mucus NEGATIVE, Urine Yeast FEWH, Urine Culture Indicated YES 08/23/21 06:00: White Blood Count 14.6H, Red Blood Count 5.33H, Hemoglobin 11.9, Hematocrit 39, Mean Corpuscular Volume 74L, Mean Corpuscular Hemoglobin 22L, Mean Corpuscular Hemoglobin Concent 30L, Red Cell Distribution Width 18.6H, Platelet Count 146, Mean Platelet Volume 10.6, Immature Granulocyte % (Auto) 2, Neutrophils (%) (Auto) 45, Lymphocytes (%) (Auto) 32, Monocytes (%) (Auto) 14H, Eosinophils (%) (Auto) 7, Basophils (%) (Auto) 2, Neutrophils # (Auto) 6.5, Lymphocytes # (Auto) 4.6H, Monocytes # (Auto) 2.0H, Eosinophils # (Auto) 1.0H, Basophils # (Auto) 0.2H, Immature Granulocyte # (Auto) 0.3H, Sodium Level 136, Potassium Level 3.0L , Chloride Level 102, Carbon Dioxide Level 21, Anion Gap 13, Blood Urea Nitrogen 17, Creatinine 0.82, Estimat Glomerular Filtration Rate 74, BUN/Creatinine Ratio 21, Glucose Level 151H, Calcium Level 9.1, Corrected Calcium 9.3, Total Bilirubin 0.3, Aspartate Amino Transf (AST/SGOT) 54H, Alanine Aminotransferase (ALT/SGPT) 87H, Alkaline Phosphatase 55, Troponin I < 0.028, Total Protein 8.3H, Albumin 3.8, Triglycerides Level 397H, Cholesterol Level 176, LDL Cholesterol Direct 78, VLDL Cholesterol 79H, HDL Cholesterol 26L 08/23/21 09:15: Troponin I < 0.028 Conclusion/Plan Non-cardiac paroxysmal chest pain - possible MSK origin - Negative Cardiac work up HTN ITP Celiac Dz Asthma NAFLD HLD Plan: Follow-up with PCP at [facility] ERICA BURTON DO 08/24/21 0550: History of Present Illness History of Present Illness Reason for visit/HPI CC: Chest pain HPI: This is a 51yoWF clinic pt of the [facility] in [facility] who has a PMH of splenectomy from ITP and GEOVANNY on CPAP who presents to the ER with chest pain due to her risk factors of morbid obesity she was admitted. Troponins were all negative, no evidence of any acute coronary syndrome. Echocardiogram performed and Dr. Pierre evaluated the pt and will schedule an outpatient stress test. Allergies and Home Medications Allergies Coded Allergies: No Known Drug Allergies (Unverified , 10/25/20) Patient Home Medication List Home Medication List Reviewed: Yes Discontinued Medications Fluconazole (Diflucan) 150 Mg Tablet, 150 MG PO DAILY Prescribed by: AVINASH LAW on 10/25/201918 Last Action: Discontinued Past Pdjpsjs-Thcqtt-Cbhwyk Hx Patient Social History Marrital Status: Employed/Student: unemployed Smoking Status: Never a Smoker Respiratory Sleep Apnea Currently Using CPAP: Yes Review of Systems Constitutional: see HPI, malaise, weakness Cardiovascular: chest pain Physical Exam General Appearance: No Apparent Distress, WD/WN, Obese Eyes: Bilateral Eye Normal Inspection, Bilateral Eye PERRL, Bilateral Eye EOMI HEENT: PERRL/EOMI, Normal ENT Inspection, Pharynx Normal Neck: Full Range of Motion, Normal Inspection, Non Tender, Supple, Carotid Bruit Respiratory: Chest Non Tender, Lungs Clear, Normal Breath Sounds, No Accessory Muscle Use, No Respiratory Distress Cardiovascular: Regular Rate, Rhythm, No Edema, No Gallop, No JVD, No Murmur, Normal Peripheral Pulses Gastrointestinal: Normal Bowel Sounds, No Organomegaly, No Pulsatile Mass, Non Tender, Soft Back: Normal Inspection, No CVA Tenderness, No Vertebral Tenderness Extremity: Normal Capillary Refill, Normal Inspection, Normal Range of Motion, Non Tender, No Calf Tenderness, No Pedal Edema Neurologic/Psychiatric: Alert, Oriented x3, No Motor/Sensory Deficits, Normal Mood/Affect Skin: Normal Color, Warm/Dry Lymphatic: No Adenopathy Short Stay Diagnosis Discharge Diagnosis-Short Stay Admission Diagnosis: Chest pain Morbid obesity BMI 45 GEOVANNY on CPAP s/p splenectomy due to ITP Final Discharge Diagnosis: Chest pain Morbid obesity BMI 45 GEOVANNY on CPAP s/p splenectomy due to ITP Conclusion Conclusion/Plan DC home EST outpatient Supervisory-Addendum Brief Verification & Attestation Participated in pt care: history, MDM, physical Personally performed: exam, history, MDM, supervision of care Care discussed with: Medical Student Procedures: n/a Results interpretation: Verified all documentation Verification and Attestation of Medical Student E/M Service A medical student performed and documented this service in my presence. I reviewed and verified all information documented by the medical student and made modifications to such information, when appropriate. I personally performed the physical exam and medical decision making. Erica Burton Aug 24, 2021,05:50 MIKI RASCON Aug 23, 2021 10:59 ERICA BURTON DO Aug 24, 2021 05:50
--- NOTE | 2021-08-23 12:02 | Consultation-Cardiology ---
HPI-Cardiology Cardiology Consultation: Date of Consultation 08/23/21 Time Seen by a Provider: 10:00 Date of Admission Attending Physician Erica Gabriel DO Admitting Physician No,Local Physician Consulting Physician ELLEN PRINCE MD, MA, FACP, FACC, FSCAI, CCDS HPI: Chief Complaint: Chest pain Ms. Goodwin is a 51 yr old female admitted to [facility] from the ED with c/o chest pain. She reports she was lying down last night when she developed left sided chest pain in the the breast region. She reports it as a sharp stabbing pain that radiated around to under her arm and made her hands feel numb. She states she changed positions to try and relieve the discomfort. Movement did not make the pain any worse. She reports she felt some diaphoresis and nausea with the discomfort. She reports is persisted constantly for several hours. She reports she has a pulse ox at home and noted her HR to vary from 80's to 140's. She reports she did feel as though she was having palpitations at that time. She reports since being admitted she has had "tinges" of sharp, stabbing pains to her left breast which are localized lasting a few seconds. No c/o SOB. She states she uses CPAP at night and has been compliant. She denies any h/v/d. No c/o LE swelling. Review of Systems-Cardiology Review of Systems Constitutional: No chills, No fever; lightheadedness Eyes: No vision change Ears/Nose/Throat: No epistaxis, No recent hearing loss Respiratory: As described under HPI Cardiovascular: As described under HPI Gastrointestinal: As described under HPI Genitourinary: No dysuria, No hematuria Musculoskeletal: As describe under HPI Skin: No rash on exposed areas, No ulcerations on exposed areas Psychiatric/Neurological: anxiety, depression; No seizure (re), No focal weakness, No syncope Hematologic: No bleeding abnormalities [id number] Hx Patient Social History Marrital Status: Smoking Status: Never a Smoker Have you traveled recently?: No Alcohol Use?: No Pt feels they are or have been: No Past Medical History PMH As described under Assessment. Family Medical History Family Medical History: She reports he mother has cardiac issues, but is unsure of exactly what the issues are. Allergies and Home Medications Allergies Coded Allergies: No Known Drug Allergies (Unverified , 10/25/20) Patient Home Medication List Home Medication List Reviewed: Yes Discontinued Medications Fluconazole (Diflucan) 150 Mg Tablet, 150 MG PO DAILY Prescribed by: AVINASH LAW on 10/25/201918 Last Action: Discontinued Physical Exam-Cardiology Physical Exam Vital Signs/I&O 08/23/21 08/23/21 08/23/21 08/23/21 00:00 00:15 00:30 00:45 Pulse 92 87 88 89 Resp 22 19 25 19 B/P (MAP) 155/87 (108) 135/84 (93) 137/75 (95) 131/77 (94) Pulse Ox 96 95 96 96 O2 Delivery Room Air Room Air Room Air Room Air 08/23/21 08/23/21 08/23/21 08/23/21 01:00 01:00 02:00 03:00 Pulse 90 86 87 86 Resp 21 18 23 B/P (MAP) 127/76 (91) 141/85 (102) 137/86 (105) Pulse Ox 96 97 97 O2 Delivery Room Air Room Air Room Air 08/23/21 08/23/21 08/23/21 08/23/21 03:57 04:00 05:00 07:00 Pulse 87 82 82 Resp 17 20 B/P (MAP) 116/68 (84) 137/83 (101) Pulse Ox 96 98 93 O2 Delivery Room Air Room Air Room Air 08/23/21 07:43 Temp 35.7 Pulse 82 Resp 21 B/P (MAP) 147/83 (104) Pulse Ox 97 O2 Delivery Room Air Capillary Refill : Less Than 3 Seconds Constitutional: AAO x 3, well-developed, well-nourished HEENT: PERRL, hearing is well preserved, oral hygience is good Neck: No carotid bruit; carotid pulses are 2 + bilaterally Respiratory: No accessory muscle use, No respiratory distress; chest expansion is symmetric, chest is bilaterally symmetric, lungs clear to auscultation Cardiovascular: regular rate-rhythm; No JVD; S1 and S2 Gastrointestinal: No tender; soft, round, audible bowel sounds Extremities: no lower extremity edema bilateral Neurologic/Psychiatric: grossly intact (moves all extremities) Skin: No rash on exposed areas, No ulcerations on exposed areas Data Review Labs Laboratory Tests 08/22/21 21:05: White Blood Count 14.9H, Red Blood Count 5.29H, Hemoglobin 11.7, Hematocrit 39, Mean Corpuscular Volume 73L, Mean Corpuscular Hemoglobin 22L, Mean Corpuscular Hemoglobin Concent 30L, Red Cell Distribution Width 18.6H, Platelet Count 140, Mean Platelet Volume 9.6, Immature Granulocyte % (Auto) 2, Neutrophils (%) (Auto) 46, Lymphocytes (%) (Auto) 32, Monocytes (%) (Auto) 13H, Eosinophils (%) (Auto) 5, Basophils (%) (Auto) 2, Neutrophils # (Auto) 6.9, Lymphocytes # (Auto) 4.8H, Monocytes # (Auto) 1.9H, Eosinophils # (Auto) 0.8H, Basophils # (Auto) 0.3H, Immature Granulocyte # (Auto) 0.3H, Neutrophils % (Manual) 55, Lymphocytes % (Manual) 28, Monocytes % (Manual) 10, Eosinophils % (Manual) 5, Basophils % (Manual) 2, Blood Morphology Comment NORMAL, Prothrombin Time 13.1, INR Comment 1.0, Activated Partial Thromboplast Time 25, Sodium Level 136, Potassium Level 3.1L, Chloride Level 102, Carbon Dioxide Level 21, Anion Gap 13, Blood Urea Nitrogen 17, Creatinine 0.93, Estimat Glomerular Filtration Rate 64, BUN/Creatinine Ratio 18, Glucose Level 215H, Calcium Level 8.8, Corrected Calcium 9.0, Magnesium Level 1.9, Total Bilirubin 0.3, Aspartate Amino Transf (AST/SGOT) 54H, Alanine Aminotransferase (ALT/SGPT) 90H, Alkaline Phosphatase 70, Troponin I < 0.028, Total Protein 8.0, Albumin 3.8 08/22/21 22:12: Urine Color YELLOW, Urine Clarity CLEAR, Urine pH 7.0, Urine Specific [place] 1.020, Urine Protein NEGATIVE, Urine Glucose (UA) 3+H, Urine Ketones NEGATIVE, Urine Nitrite NEGATIVE, Urine Bilirubin NEGATIVE, Urine Urobilinogen 0.2, Urine Leukocyte Esterase NEGATIVE, Urine RBC (Auto) NEGATIVE, Urine RBC NONE, Urine WBC NONE, Urine Squamous Epithelial Cells 0-2, Urine Crystals NONE, Urine Bacteria NEGATIVE, Urine Casts NONE, Urine Mucus NEGATIVE, Urine Yeast FEWH, Urine Culture Indicated YES 08/23/21 06:00: White Blood Count 14.6H, Red Blood Count 5.33H, Hemoglobin 11.9, Hematocrit 39, Mean Corpuscular Volume 74L, Mean Corpuscular Hemoglobin 22L, Mean Corpuscular Hemoglobin Concent 30L, Red Cell Distribution Width 18.6H, Platelet Count 146, Mean Platelet Volume 10.6, Immature Granulocyte % (Auto) 2, Neutrophils (%) (Aut o) 45, Lymphocytes (%) (Auto) 32, Monocytes (%) (Auto) 14H, Eosinophils (%) (Au to) 7, Basophils (%) (Auto) 2, Neutrophils # (Auto) 6.5, Lymphocytes # (Auto) 4.6H, Monocytes # (Auto) 2.0H, Eosinophils # (Auto) 1.0H, Basophils # (Auto) 0.2H, Immature Granulocyte # (Auto) 0.3H, Sodium Level 136, Potassium Level 3.0L , Chloride Level 102, Carbon Dioxide Level 21, Anion Gap 13, Blood Urea Nitrogen 17, Creatinine 0.82, Estimat Glomerular Filtration Rate 74, BUN/Creatinine Ratio 21, Glucose Level 151H, Calcium Level 9.1, Corrected Calcium 9.3, Total Bilirubin 0.3, Aspartate Amino Transf (AST/SGOT) 54H, Alanine Aminotransferase (ALT/SGPT) 87H, Alkaline Phosphatase 55, Troponin I < 0.028, Total Protein 8.3H, Albumin 3.8, Triglycerides Level 397H, Cholesterol Level 176, LDL Cholesterol Direct 78, VLDL Cholesterol 79H, HDL Cholesterol 26L 08/23/21 09:15: Troponin I < 0.028 Laboratory Tests 08/22/21 21:05 08/23/21 06:00 A/P-Cardiology Assessment/Admission Diagnosis Chest pain of undetermined etiology - no evidence of ACS - Echo of 08/23/21: LVEF 60-65%, no wall motion abnormalityPASP could not be estimated HTN HLD GEOVANNY - CPAP tx 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 Continue home medications Replace electrolytes and follow labs Risk factor mod reviewed Outpt f/u and outpt stress test advised Clinical Quality Measures AMI/AHF: ASA po Prior to arrival: ELLEN Fiore MD FACP FACC CCDS Aug 23, 2021 12:02
== END 2021-08-23 10:23 | disposition home or self-care (01) ==
LOC: EDUNIT# 20:52 → ER 20:54 → UNDOADMOB 22:10 → CSD 22:10 → UNDODISOB 08-23 12:00
PROVIDERS: ADMIT Internal Medicine; ATTEND Internal Medicine
DX: R07.89 Other chest pain (principal); R20.2 Paresthesia of skin; E11.40 Type 2 diabetes mellitus with diabetic neuropathy, unspecified; J45.909 Unspecified asthma, uncomplicated; I10 Essential (primary) hypertension; E78.5 Hyperlipidemia, unspecified; N39.0 Urinary tract infection, site not specified; R00.0 Tachycardia, unspecified; I25.2 Old myocardial infarction; G47.33 Obstructive sleep apnea (adult) (pediatric); K21.9 Gastro-esophageal reflux disease without esophagitis; M79.7 Fibromyalgia; E66.01 Morbid (severe) obesity due to excess calories; E03.9 Hypothyroidism, unspecified; Z68.42 Body mass index [BMI] 45.0-49.9, adult; Z79.899 Other long term (current) drug therapy
CPT/HCPCS: 71045; 80053 ×2; 80061; 81000; 83735; 84484 ×2; 85007; 85025; 85027; 85610; 85730; 87088; 93005 ×2; 93041; 93306; 99284; G0378; 36415; 96374

== ENCOUNTER 2021-11-04 15:02 | Emergency (ER) | payer MEDICARE ==
[~2021-11-04] VITALS: Ht 157 cm; Wt 102.0 kg
[2021-11-04 16:41] LABS: BILIRUBIN,URINE NEGATIVE (NEGATIVE); CLARITY,URINE CLEAR; COLOR,URINE YELLOW; GLUCOSE, URINE (UA) 3+ (NEGATIVE); KETONES,URINE NEGATIVE (NEGATIVE); LEUKOCYTE ESTERASE ,URINE NEGATIVE (NEGATIVE); NITRITE,URINE NEGATIVE (NEGATIVE); PROTEIN,URINE NEGATIVE (NEGATIVE)
[2021-11-04] MEDS ORDERED: fentaNYL INJ 100 MCG/2 ML AMP IVP ONE (16:45)
--- NOTE | 2021-11-04 16:49 | ED GU-Female ---
General Chief Complaint: Abdominal/GI Problems Stated Complaint: BACK/ABD PAIN Nursing Triage Note: AMB TO ROOM C/O L SIDE PAIN SINCE OCT 26 Source: patient Exam Limitations: no limitations History of Present Illness Date Seen by Provider: Nov 04, 2021 Time Seen by Provider: 16:08 Initial Comments This is a 51-year-old female who presented to the ER with complaints of painful burning urination and left flank pain. States that she started developing symptoms of urinary tract infection around October 26. Was having some painful urination and discomfort but thought this was related to her menstrual period because she started the next day. Over the course of this week she has been having increasing pain that is going up into her left flank. No fever, intermittent chills, nausea without emesis.No chest pain, shortness of breath, coughing. Allergies and Home Medications Allergies Coded Allergies: No Known Drug Allergies (Unverified , 10/25/20) Patient Home Medication List Home Medication List Reviewed: Yes Ciprofloxacin HCl (Ciprofloxacin HCl) 500 Mg Tablet, 500 MG PO BID Prescribed by: ASAD GUTIERREZ on 11/04/211831 Review of Systems Review of Systems Constitutional: see HPI EENTM: no symptoms reported Respiratory: no symptoms reported Cardiovascular: no symptoms reported Gastrointestinal: see HPI Genitourinary: see HPI, burning; denies discharge; flank pain (left ) Musculoskeletal: no symptoms reported Skin: no symptoms reported, see HPI Psychiatric/Neurological: No Symptoms Reported Endocrine: No Symptoms Reported Hematologic/Lymphatic: No Symptoms Reported Past Glvupjm-Oqbodq-Mkdkaw Hx Patient Social History Tobacco Use?: No Immunizations Up To Date First/Initial COVID19 Vaccinat: NA Seasonal Allergies Seasonal Allergies: Yes Past Medical History Surgeries: Yes Abdominal, Section, Tubal Ligation Respiratory: Yes Asthma, Sleep Apnea Currently Using CPAP: Yes Cardiac: Yes Hypertension Neurological: Yes 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 oz. kg; 41.00 BMI Method: General Appearance: WD/WN, no apparent distress HEENT: PERRL/EOMI, normal ENT inspection, pharynx normal Neck: full range of motion, normal inspection Cardiovascular: regular rate, rhythm, no murmur Respiratory: lungs clear, normal breath sounds, no respiratory distress, no accessory muscle use Gastrointestinal: normal bowel sounds, non tender, soft, no organomegaly Back: CVA tenderness (L) Extremities: normal range of motion, non-tender, normal inspection Neurologic/Psychiatric: no motor/sensory deficits, alert, normal mood/affect, oriented x 3 Skin: normal color, warm/dry Progress/Results/Core Measures Suspected Sepsis SIRS Temperature: Pulse: 80 Respiratory Rate: 18 Laboratory Tests 11/04/21 17:05: White Blood Count 14.8H Blood Pressure 138 /89 Mean: 105 Laboratory Tests 11/04/21 17:05: Creatinine 0.73, Platelet Count 278, Total Bilirubin 0.2 Results/Orders Lab Results Laboratory Tests Test 11/04/21 16:05 11/04/21 17:05 Range/Units Urine Color YELLOW Urine Clarity CLEAR Urine pH 8.0 5-9 Urine Specific [place] 1.020 1.016-1.022 Urine Protein NEGATIVE NEGATIVE Urine Glucose (UA) 3+ H NEGATIVE Urine Ketones NEGATIVE NEGATIVE Urine Nitrite NEGATIVE NEGATIVE Urine Bilirubin NEGATIVE NEGATIVE Urine Urobilinogen 0.2 < = 1.0 MG/DL Urine Leukocyte Esterase NEGATIVE NEGATIVE Urine RBC (Auto) TRACE-I H NEGATIVE Urine RBC 0-2 /HPF Urine WBC 2-5 /HPF Urine Squamous Epithelial Cells 0-2 /HPF Urine Crystals PRESENT H /LPF Urine Amorphous Sediment MOD MARCO ANTONIO PHOSPHATE H /LPF Urine Bacteria MODERATE H /HPF Urine Casts NONE /LPF Urine Mucus NEGATIVE /LPF Urine Yeast FEW H /HPF Urine Culture Indicated YES White Blood Count 14.8 H 4.3-11.0 10^3/uL Red Blood Count 5.10 3.80-5.11 10^6/uL Hemoglobin 11.7 11.5-16.0 g/dL Hematocrit 39 35-52 % Mean Corpuscular Volume 77 L 80-99 fL Mean Corpuscular Hemoglobin 23 L 25-34 pg Mean Corpuscular Hemoglobin Concent 30 L 32-36 g/dL Red Cell Distribution Width 21.1 H 10.0-14.5 % Platelet Count 278 130-400 10^3/uL Mean Platelet Volume 9.8 9.0-12.2 fL Immature Granulocyte % (Auto) 1 % Neutrophils (%) (Auto) 43 42-75 % Lymphocytes (%) (Auto) 36 12-44 % Monocytes (%) (Auto) 13 H 0-12 % Eosinophils (%) (Auto) 6 0-10 % Basophils (%) (Auto) 1 0-10 % Neutrophils # (Auto) 6.4 1.8-7.8 10^3/uL Lymphocytes # (Auto) 5.3 H 1.0-4.0 10^3/uL Monocytes # (Auto) 1.8 H 0.0-1.0 10^3/uL Eosinophils # (Auto) 0.9 H 0.0-0.3 10^3/uL Basophils # (Auto) 0.2 H 0.0-0.1 10^3/uL Immature Granulocyte # (Auto) 0.1 0.0-0.1 10^3/uL Neutrophils % (Manual) 42 % Lymphocytes % (Manual) 33 % Monocytes % (Manual) 12 % Eosinophils % (Manual) 9 % Metamyelocytes % 1 % Band Neutrophils 1 % Nucleated Red Blood Cells 1 Atypical Lymphocytes 2 % Smudge Cells SLIGHT Toxic Granulation 2+ Polychromasia SLIGHT Poikilocytosis MODERATE Anisocytosis SLIGHT Microcytosis SLIGHT Target Cells SLIGHT [place] Cells SLIGHT Acanthocytes SLIGHT Rouleau SLIGHT Sodium Level 137 135-145 MMOL/L Potassium Level 3.4 L 3.6-5.0 MMOL/L Chloride Level 105 98-107 MMOL/L Carbon Dioxide Level 19 L 21-32 MMOL/L Anion Gap 13 5-14 MMOL/L Blood Urea Nitrogen 17 7-18 MG/DL Creatinine 0.73 0.60-1.30 MG/DL Estimat Glomerular Filtration Rate 101 BUN/Creatinine Ratio 23 Glucose Level 139 H 70-105 MG/DL Calcium Level 9.1 8.5-10.1 MG/DL Corrected Calcium 9.3 8.5-10.1 MG/DL Total Bilirubin 0.2 0.1-1.0 MG/DL Aspartate Amino Transf (AST/SGOT) 32 5-34 U/L Alanine Aminotransferase (ALT/SGPT) 60 H 0-55 U/L Alkaline Phosphatase 48 40-136 U/L Total Protein 8.0 6.4-8.2 GM/DL Albumin 3.7 3.2-4.5 GM/DL My Orders Orders - ASAD GUTIERREZ APRN Ua Culture If Indicated (11/04/21 15:08) Ed Iv/Invasive Line Start (11/04/21 16:37) Cbc With Automated Diff (11/04/21 16:37) Comprehensive Metabolic Panel (11/04/21 16:37) Fentanyl Inj (Sublimaze Injection) (11/04/21 16:45) Urine Culture (11/04/21 16:05) Ct Abd/Pelvis Wo(Kidney Stone) (11/04/21 17:06) Manual Differential (11/04/21 17:05) Ketorolac Injection (Toradol Injection) (11/04/21 18:45) Medications Given in ED Current Medications Medications Dose Ordered Sig/Rika Route Start Time Stop Time Status Last Admin Dose Admin Fentanyl Citrate 50 mcg ONCE ONCE IVP 11/04/21 16:45 11/04/21 16:46 DC 11/04/21 17:10 50 MCG Ketorolac Tromethamine 30 mg ONCE ONCE IVP 11/04/21 18:45 11/04/21 18:46 DC 11/04/21 18:39 30 MG Vital Signs/I&O 11/04/21 11/04/21 15:18 18:50 Temp 36.0 Pulse 80 90 Resp 18 18 B/P (MAP) 138/89 (105) 128/72 Pulse Ox 97 97 O2 Delivery Room Air Room Air Capillary Refill : Less Than 3 Seconds Blood Pressure Mean: 105 Progress Note : Progress Note Orders placed for basic labs, urine sample, CT abdomen pelvis without contrast. Will evaluate for kidney stone. Given fentanyl 50 mcg IV push for pain. CT abdomen pelvis negative for stone, acute process. However based on clinical presentation We will go ahead and treat for acute pyelonephritis. We will have her do close follow-up with her primary care provider if her symptoms persist. Discussed returning to the emergency department if she has any worsening symptoms despite starting her antibiotics. Discharge plan of care reviewed and she is agreeable with plan. Diagnostic Imaging Diagonstic Imaging: Xray Plain Films/CT/US/NM/MRI: chest Comments [facility], [facility]. [place], [place] NAME: MARCI SABILLON [facility] REC#: [id number] PT STATUS: DEP ER : 1970 PHYSICIAN: ASAD GUTIERREZ FITTER PLACER ADMIT DATE: 11/04/21/ER Signed Date of Exam:11/04/21 CT ABD/PELVIS WO(KIDNEY STONE) PROCEDURE: CT urinary tract, rule out kidney stone. TECHNIQUE: Multiple contiguous axial images were obtained through the abdomen and pelvis without the use of intravenous contrast. Auto Exposure Controls were utilized during the CT exam to meet ALARA standards for radiation dose reduction. INDICATION: Left-sided pain. COMPARISON: Study of 10/25/2020. FINDINGS: There are no radiopaque stones present. There is no hydroureteronephrosis. No perinephric or periureteric edema or stranding. The urinary bladder unremarkable. The uterus and adnexa unremarkable. There is no appendicitis or diverticulitis. There is no small or large bowel obstruction. Liver, gallbladder, bile ducts, adrenals and pancreas are unremarkable. The spleen is absent. The aorta is nonaneurysmal. Tiny exophytic nodule off the lower pole of the right kidney measures 1.5 cm and shows no obvious complexity at this unenhanced exam. No mesenteric or retroperitoneal lymphadenopathy. No focal inflammatory process. IMPRESSION: No opaque stones or obstructive phenomena. No inflammatory process or acute appearing abnormalities. Dictated by: Dictated on workstation # [id number] Dict: 11/04/211756 Trans: 11/04/211899 [facility] [id number] Interpreted by: IVANA GARCIA Electronically signed by: IVANA GARCIA 11/04/211899 Departure Impression Primary Impression: Acute pyelonephritis Disposition: HOME, SELF-CARE Condition: Improved Departure-Patient Inst. Decision time for Depature: 18:30 Referrals: NO,LOCAL PHYSICIAN (PCP/Family) Primary Care Physician Patient Instructions: Kidney Infection (DC) Add. Discharge Instructions: Plan: 1. Take ciprofloxacin twice a day as directed. Complete full course even if you begin to feel better. 2. Drink plenty of fluids to stay hydrated and flush your kidneys. 3. Follow-up with your doctor if your symptoms persist. You can return to the emergency department if you have any new, concerning, worsening symptoms. 4. May take Tylenol or ibuprofen as needed for pain per package. All discharge instructions reviewed with patient and/or family. Voiced understanding. Scripts Ciprofloxacin HCl (Ciprofloxacin HCl) 500 Mg Tablet 500 MG PO BID for 7 Days, #14 TAB 0 Refills Prov: ASAD GUTIERREZ FITTER PLACER 11/04/21 ASAD GUTIERREZ FITTER PLACER Nov 04, 2021 16:49
[2021-11-04 16:50] LABS: RBC,URINE 0-2 /HPF
[2021-11-04 16:51] LABS: AMORPHOUS SEDIMENT,UR MOD AMOR PHOSPHATE /LPF; BACTERIA,URINE MODERATE /HPF; SQUAMOUS EPITHELIAL CELL,UR 0-2 /HPF
[2021-11-04 16:55] LABS: YEAST,URINE FEW /HPF
[2021-11-04 17:21] LABS: BASOPHILS # (AUTO) 0.2 10^3/uL (0.0-0.1); BASOPHILS % (AUTO) 1 % (0-10); EOSINOPHILS # (AUTO) 0.9 10^3/uL (0.0-0.3); EOSINOPHILS % (AUTO) 6 % (0-10); HEMATOCRIT 39 % (35-52); HEMOGLOBIN 11.7 g/dL (11.5-16.0); LYMPHOCYTES # (AUTO) 5.3 10^3/uL (1.0-4.0); LYMPHOCYTES % (AUTO) 36 % (12-44); MEAN CORPUSCULAR HEMOGLOBIN 23 pg (25-34); MEAN CORPUSCULAR HGB CONC 30 g/dL (32-36); MEAN CORPUSCULAR VOLUME 77 fL (80-99); MEAN PLATELET VOLUME 9.8 fL (9.0-12.2); MONOCYTES # (AUTO) 1.8 10^3/uL (0.0-1.0); MONOCYTES % (AUTO) 13 % (0-12); NEUTROPHILS # (AUTO) 6.4 10^3/uL (1.8-7.8); NEUTROPHILS % (AUTO) 43 % (42-75); PLATELET COUNT 278 10^3/uL (130-400); WHITE BLOOD COUNT 14.8 10^3/uL (4.3-11.0)
[2021-11-04 17:34] LABS: ALBUMIN 3.7 GM/DL (3.2-4.5); POTASSIUM 3.4 MMOL/L (3.6-5.0)
[2021-11-04 17:36] LABS: CALCIUM 9.1 MG/DL (8.5-10.1)
[2021-11-04 17:39] LABS: BILIRUBIN,TOTAL 0.2 MG/DL (0.1-1.0)
[2021-11-04 17:41] LABS: CREATININE SERUM 0.73 MG/DL (0.60-1.30)
[2021-11-04 17:56] LABS: BAND NEUTROPHILS 1 %; LYMPHOCYTES % (MANUAL) 33 %; MONOCYTES % (MANUAL) 12 %; NEUTROPHILS % (MANUAL) 42 %
[2021-11-04 17:57] LABS: ANISOCYTOSIS SLIGHT; ATYPICAL LYMPHOCYTES 2 %; EOSINOPHILS % (MANUAL) 9 %; METAMYELOCYTES % 1 %; MICROCYTOSIS SLIGHT; NUCLEATED RED BLOOD CELLS 1; POIKILOCYTOSIS MODERATE; POLYCHROMASIA SLIGHT
[2021-11-04 17:58] LABS: ACANTHOCYTES SLIGHT; BURR CELLS SLIGHT; ROULEAUX SLIGHT; TARGET CELLS SLIGHT; TOXIC GRANULATION/VACUOLAZATIO 2+
--- NOTE | 2021-11-04 18:15 | Diagnostic Imaging Report ---
PROCEDURE: CT urinary tract, rule out kidney stone. TECHNIQUE: Multiple contiguous axial images were obtained through the abdomen and pelvis without the use of intravenous contrast. Auto Exposure Controls were utilized during the CT exam to meet ALARA standards for radiation dose reduction. INDICATION: Left-sided pain. COMPARISON: Study of 10/25/2020. FINDINGS: There are no radiopaque stones present. There is no hydroureteronephrosis. No perinephric or periureteric edema or stranding. The urinary bladder unremarkable. The uterus and adnexa unremarkable. There is no appendicitis or diverticulitis. There is no small or large bowel obstruction. Liver, gallbladder, bile ducts, adrenals and pancreas are unremarkable. The spleen is absent. The aorta is nonaneurysmal. Tiny exophytic nodule off the lower pole of the right kidney measures 1.5 cm and shows no obvious complexity at this unenhanced exam. No mesenteric or retroperitoneal lymphadenopathy. No focal inflammatory process. IMPRESSION: No opaque stones or obstructive phenomena. No inflammatory process or acute appearing abnormalities. Dictated by: Dictated on workstation # [id number]
[2021-11-04] MEDS ORDERED: CIPR500T5 PO (18:32)
[2021-11-04] MEDS ORDERED: KETOROLAC 30 MG/ML VIAL IVP ONE (18:45)
[2021-11-04 18:50] VITALS: BP 128/72
== END 2021-11-04 18:50 | disposition home or self-care (01) ==
LOC: EDUNIT# 15:02 → ER 15:04
DX: N10 Acute pyelonephritis (principal); I10 Essential (primary) hypertension; J45.909 Unspecified asthma, uncomplicated; E11.9 Type 2 diabetes mellitus without complications
CPT/HCPCS: 36415; 74176; 80053; 81000; 85007; 85027; 87088